=== PATIENT | female | born 1965 | race African-American/Black ===

== ENCOUNTER → 2016-07-03 | Outpatient (CLI) | payer OTHER ==
[~2016-07-03] MED LIST: ALPR0.5T6 PO; BACI1POW MC; BISA5TAB4 PO; DOCU100C5 PO; ENOX40DI3 SQ; FENT50VI IJ; HYDR-2666 PO; IPRA3AMP IH; KETO5DRO7 OP; LORA10TA55 PO; MAGN400O4 PO; METO10SO PO; MONT10TA9 PO; PANT40TA5 PO; POTA20TA12 PO; TOPI100T90 PO; WARF3TAB7 PO; ZOLP5TAB5 PO; [UNRECOGNIZED DRUG - CODE] MC
--- NOTE | 2016-07-03 16:34 | RAD ---
INDICATION: cough COMPARISON: 08/19/2013 FINDINGS: 2 views of chest obtained. No focal airspace consolidation. Mediastinal contour is unremarkable. No gross osseous destructive lesion. IMPRESSION: No focal airspace consolidation or edema.
== END | disposition home or self-care (01) ==
LOC: RAD 15:02
PROVIDERS: ATTEND Internal Medicine Critical Care Medicine
DX: R05 Cough (principal)
CPT/HCPCS: 71020